=== PATIENT | male | born 1960 | race Caucasian/White ===

== ENCOUNTER 2020-09-10 18:50 | Emergency (ER) | payer OTHER ==
[~2020-09-10] VITALS: Ht 160 cm; Wt 63.5 kg
[2020-09-10 18:50] VITALS: BP_SYST 198
[~2020-09-10 18:50] MED LIST: FERR-57 PO; GLIP5TAB13 PO; LOP600 PO; OMEP20CA15 PO
[2020-09-10] MEDS ORDERED: amLODIPine BESYLATE 10 MG TABLET PO ONE (19:00)
[2020-09-10 19:28] LABS: BASOPHILS # (AUTO) 0.1 K/uL (0.0-0.2); BASOPHILS % (AUTO) 1.9 % (0.0-2.0); EOSINOPHILS # (AUTO) 0.2 K/uL (0.0-0.4); EOSINOPHILS % (AUTO) 2.7 % (0.0-4.0); HEMATOCRIT 34.3 % (36-54); HEMOGLOBIN 11.6 g/dL (14.0-18.0); LYMPHOCYTES # (AUTO) 0.6 K/uL (1.0-5.5); MEAN CORPUSCULAR HEMOGLOBIN 33 pg (27-31); MEAN CORPUSCULAR HGB CONC 34 % (32-36); MEAN CORPUSCULAR VOLUME 98 fL (79.0-98.0); MONOCYTES # (AUTO) 0.2 K/uL (0.0-1.0); MONOCYTES % (AUTO) 4.1 % (1.7-9.3); NEUTROPHILS # (AUTO) 4.5 K/uL (1.8-7.7); NEUTROPHILS % (AUTO) 81.3 % (40.0-70.0); PLATELET COUNT (AUTO) 141 K/uL (130-430); RED BLOOD CELL COUNT(AUTO) 3.51 MIL/uL (4.2-6.2); RED CELL DISTRIBUTION WIDTH 16.2 % (9.0-15.0); WHITE BLOOD COUNT (AUTO) 5.6 K/uL (4.8-10.8)
[2020-09-10 19:40] LABS: ANION GAP 10 (5-15); CHLORIDE 102 mmol/L (98-107); CREATININE 3.41 mg/dL (0.55-1.30); GLUCOSE 107 mg/dL (70-99); SODIUM SERUM 144 mmol/L (136-145); UREA NITROGEN, BLOOD 13 mg/dL (8-21)
[2020-09-10 19:42] LABS: GFR AFRICAN AMERICAN 24 mL/min (>90)
[2020-09-10 19:48] LABS: ALANINE AMINOTRANSFERASE 14 U/L (12-78); ALBUMIN 3.3 g/dL (3.4-4.8); ASPARTATE AMINOTRANSFERASE 11 U/L (10-37); TOTAL BILIRUBIN 0.3 mg/dL (0.0-1.0)
[2020-09-10 19:53] LABS: POTASSIUM 2.9 mmol/L (3.5-5.1)
[2020-09-10 19:54] LABS: ALCOHOL, BLOOD < 3 mg/dL (<10)
[2020-09-10 20:32] VITALS: BP_SYST 194
== END 2020-09-10 20:30 | disposition home or self-care (01) ==
LOC: SED 18:50
DX: E11.649 Type 2 diabetes mellitus with hypoglycemia without coma (principal); I10 Essential (primary) hypertension; R41.82 Altered mental status, unspecified; Z79.899 Other long term (current) drug therapy
CPT/HCPCS: 36415; 70450; 76376; 80053; 84484; 85025; 93005; 99285; G0482

== ENCOUNTER 2021-07-22 12:26 | Emergency (ER) | payer BC, OTHER ==
[~2021-07-22] VITALS: Ht 160 cm; Wt 59.0 kg
[2021-07-22 12:26] VITALS: BP_SYST 117
--- NOTE | 2021-07-22 12:36 | NUR ---
Patient to ER bed 02 to gown for evaluation. Side rails up.
--- NOTE | 2021-07-22 12:38 | NUR ---
Pt brought by ambulance, A&Ox4, pt presents to ER with AV shunt bleeding during dialysis, no bleeding noted at this time, VSS, respirations even and unlabored, cap refill <3.
--- NOTE | 2021-07-22 13:00 | NUR ---
mD Slater AT BEDSIDE FOR EVALUATION.
[2021-07-22 14:46] LABS: BASOPHILS # (AUTO) 0.1 K/uL (0.0-0.2); BASOPHILS % (AUTO) 1.2 % (0.0-2.0); EOSINOPHILS # (AUTO) 0.5 K/uL (0.0-0.4); EOSINOPHILS % (AUTO) 6.2 % (0.0-4.0); HEMATOCRIT 27.6 % (36-54); HEMOGLOBIN 9.5 g/dL (14.0-18.0); MEAN CORPUSCULAR HEMOGLOBIN 37 pg (27-31); MEAN CORPUSCULAR HGB CONC 35 % (32-36); MEAN CORPUSCULAR VOLUME 107 fL (79.0-98.0); MONOCYTES # (AUTO) 0.7 K/uL (0.0-1.0); MONOCYTES % (AUTO) 9.4 % (1.7-9.3); NEUTROPHILS # (AUTO) 5.2 K/uL (1.8-7.7); NEUTROPHILS % (AUTO) 70.2 % (40.0-70.0); PLATELET COUNT (AUTO) 171 K/uL (130-430); RED BLOOD CELL COUNT(AUTO) 2.57 MIL/uL (4.2-6.2); RED CELL DISTRIBUTION WIDTH 13.7 % (9.0-15.0); WHITE BLOOD COUNT (AUTO) 7.4 K/uL (4.8-10.8)
[2021-07-22 15:02] LABS: CALCIUM 7.9 mg/dL (8.4-11.0); POTASSIUM 4.7 mmol/L (3.5-5.1)
[2021-07-22 15:09] LABS: CREATININE 7.84 mg/dL (0.55-1.30)
[2021-07-22 15:40] VITALS: BP_SYST 139
--- NOTE | 2021-07-22 15:40 | NUR ---
Patient given written and verbal discharge instructions and verbalizes understanding. DR.RHEE CLIFF MENDIOLA discussed with patient the results and treatment provided. Patient in stable condition. ID arm band removed. Patient educated on pain management and to follow up with PMD. Pain Scale 0/10 Opportunity for questions provided and answered. Medication side effect fact sheet provided.
== END 2021-07-22 15:40 | disposition home or self-care (01) ==
LOC: SED 12:26
DX: T82.838A Hemorrhage due to vascular prosthetic devices, implants and grafts, initial encounter (principal); I10 Essential (primary) hypertension; E11.9 Type 2 diabetes mellitus without complications; Z79.899 Other long term (current) drug therapy
CPT/HCPCS: 36415; 80048; 85025; 99283

== ENCOUNTER 2022-02-25 10:15 | Inpatient (IN) | payer BC ==
[~2022-02-25] VITALS: Ht 157.5 cm; Wt 57.6 kg
[2022-02-25 10:15] VITALS: BP_SYST 156
[2022-02-25] MEDS ORDERED: CLOP75TA32 PO (10:31)
[2022-02-25] MEDS ORDERED: FOLI-43 PO (10:31)
[2022-02-25] MEDS ORDERED: VALS80TA2 PO (10:31)
[2022-02-25] MEDS ORDERED: HYDR-4039 PO (10:31)
[2022-02-25] MEDS ORDERED: FURO80TA86 PO (10:31)
[2022-02-25] MEDS ORDERED: LEVO175T2 PO (10:31)
[2022-02-25] MEDS ORDERED: PROXL60 PO (10:31)
[2022-02-25] MEDS ORDERED: ATOR20TA64 PO (10:31)
[2022-02-25] MEDS ORDERED: REN800 PO (10:31)
[2022-02-25] MEDS ORDERED: VITD400 PO (10:31)
[2022-02-25] MEDS ORDERED: CALC667T6 PO (10:31)
[2022-02-25] MEDS ORDERED: LEVE500T9 PO (10:31)
[2022-02-25] MEDS ORDERED: ASPI-1393 PO (10:31)
[2022-02-25] MEDS ORDERED: MECO10005 (10:31)
[2022-02-25] MEDS ORDERED: ONDANSETRON HCL 4 MG/2 ML VIAL IVP ONE ×2 (10:45→12:30)
[2022-02-25] MEDS ORDERED: PANTOPRAZOLE SODIUM 40 MG/VIAL (PROTONIX) IVP ONE (10:45)
[2022-02-25 11:18] LABS: BASOPHILS % (AUTO) 0.4 % (0.0-2.0); EOSINOPHILS % (AUTO) 0.1 % (0.0-4.0); HEMATOCRIT 26.3 % (36-54); LYMPHOCYTES # (AUTO) 0.5 K/uL (1.0-5.5); LYMPHOCYTES % (AUTO) 3.8 % (20.5-51.5); MEAN CORPUSCULAR HEMOGLOBIN 35 pg (27-31); MEAN CORPUSCULAR HGB CONC 34 % (32-36); MEAN CORPUSCULAR VOLUME 101 fL (79.0-98.0); MONOCYTES # (AUTO) 0.6 K/uL (0.0-1.0); MONOCYTES % (AUTO) 4.9 % (1.7-9.3); NEUTROPHILS # (AUTO) 10.9 K/uL (1.8-7.7); NEUTROPHILS % (AUTO) 90.8 % (40.0-70.0); PLATELET COUNT (AUTO) 164 K/uL (130-430); RED BLOOD CELL COUNT(AUTO) 2.59 MIL/uL (4.2-6.2); RED CELL DISTRIBUTION WIDTH 16.2 % (9.0-15.0)
[2022-02-25 11:29] LABS: CALCIUM 9.3 mg/dL (8.4-11.0); CREATININE 4.7 mg/dL (0.55-1.30)
[2022-02-25 11:32] LABS: INR 1.1 (0.80-1.20); PROTHROMBIN TIME 11.1 SECS (9.5-12.5)
[2022-02-25 11:40] LABS: TOTAL BILIRUBIN 0.4 mg/dL (0.0-1.0)
[2022-02-25] MEDS ORDERED: METOCLOPRAMIDE HCL 10 MG/2 ML VIAL IVP ONE (13:15)
[2022-02-25] MEDS ORDERED: cefTRIAXone 1 GM IVPB PREMIX 50 ML IV ONE (15:15)
[2022-02-25] MEDS ORDERED: DIPHENHYDRAMINE INJ 50 MG/ML VIAL IVP ONE (15:45)
[2022-02-25] MEDS ORDERED: HALOPERIDOL LACTATE 5 MG/ML VIAL IVP ONE (15:45)
[2022-02-25] MEDS ORDERED: LABETALOL 100 MG/ 20ML VIAL IVP ONE (17:15)
[2022-02-25 22:45] VITALS: BP_SYST 161
[2022-02-25 23:00] VITALS: BP_SYST 170
[2022-02-25 23:14] VITALS: BP_SYST 170
[2022-02-25 23:40] VITALS: BP_SYST 170
[2022-02-26] VITALS (27 sets, daily range): BP systolic 94–209
[2022-02-26] MEDS ORDERED: ACETAMINOPHEN 325 MG TABLET ONE (01:57)
[2022-02-26] MEDS: ACETAMINOPHEN 325 MG TABLET PO PRN ×2 (02:48→16:51)
[2022-02-26] MEDS ORDERED: HEPARIN SODIUM,PORCINE 5,000 UNITS/ML VIAL ONE (04:15)
[2022-02-26] MEDS ORDERED: PIPERACILLIN/TAZOBACTAM 2.25 GM VIAL IV ONE (04:37)
[2022-02-26] MEDS ORDERED: HEPARIN SODIUM,PORCINE 5,000 UNITS/ML VIAL IVP ONE (05:15)
[2022-02-26] MEDS ORDERED: VANCOMYCIN HCL 1 GM/NS PREMIX 250 ML IV ONE ×2 (05:45→08:00)
[2022-02-26] MEDS: PIPERACILLIN/TAZO 2.25G/DEX-IS 50 ML IV SCH ×3 (06:55→18:41)
[2022-02-26 08:25] LABS: BASOPHILS % (AUTO) 0.5 % (0.0-2.0); HEMATOCRIT 24.8 % (36-54); HEMOGLOBIN 8.7 g/dL (14.0-18.0); LYMPHOCYTES # (AUTO) 0.6 K/uL (1.0-5.5); LYMPHOCYTES % (AUTO) 8.3 % (20.5-51.5); MEAN CORPUSCULAR HEMOGLOBIN 35 pg (27-31); MEAN CORPUSCULAR HGB CONC 35 % (32-36); MEAN CORPUSCULAR VOLUME 101 fL (79.0-98.0); MONOCYTES # (AUTO) 0.3 K/uL (0.0-1.0); MONOCYTES % (AUTO) 4.1 % (1.7-9.3); NEUTROPHILS # (AUTO) 6.3 K/uL (1.8-7.7); NEUTROPHILS % (AUTO) 87.1 % (40.0-70.0); PLATELET COUNT (AUTO) 139 K/uL (130-430); RED BLOOD CELL COUNT(AUTO) 2.46 MIL/uL (4.2-6.2); RED CELL DISTRIBUTION WIDTH 16.1 % (9.0-15.0)
[2022-02-26 08:30] LABS: WHITE BLOOD COUNT (AUTO) 7.3 K/uL (4.8-10.8)
[2022-02-26 08:44] LABS: ALBUMIN 2.8 g/dL (3.4-4.8); CALCIUM 8.6 mg/dL (8.4-11.0); CREATININE 3.55 mg/dL (0.55-1.30); PHOSPHORUS 2.3 mg/dL (2.7-4.5); TOTAL BILIRUBIN 0.8 mg/dL (0.0-1.0)
[2022-02-26] MEDS ORDERED: ETOMIDATE 20 MG/ 10 ML VIAL (AMIDATE) ONE (11:00)
[2022-02-26] MEDS ORDERED: ROCURONIUM BROMIDE 10 MG/ML (ZEMURON) ONE (11:00)
[2022-02-26] MEDS ORDERED: PROPOFOL DRIP 100 ML IV ONE (11:24)
[2022-02-26] MEDS ORDERED: SODIUM BICARBONATE 8.4% JECT 50 MEQ/50 ML SYRINGE IVP ONE (12:00)
[2022-02-26] MEDS: PROPOFOL DRIP 100 ML IV PRN ×3 (12:26→21:14)
[2022-02-26] MEDS ORDERED: SODIUM BICARBONATE 8.4% JECT 50 MEQ in 0.45% NACL 1,000 ML IVP SCH (14:00)
[2022-02-26 14:06] LABS: BILIRUBIN,URINE NEGATIVE (NEGATIVE); BLOOD, URINE 1+ (NEGATIVE); CLARITY/URINE CLEAR (CLEAR); COLOR,URINE YELLOW (YELLOW); GLUCOSE,URINE 1+ (NEGATIVE); KETONES,URINE 1+ (NEGATIVE); LEUKOCYTE ESTERASE ,URINE NEGATIVE (NEGATIVE); NITRITE, URINE NEGATIVE (NEGATIVE); PH,URINE 8.5 (5.0-8.0); PROTEIN URINE 3+ (NEGATIVE); UROBILINOGEN,URINE 0.2 (0.2-1.0)
[2022-02-26 14:32] LABS: BACTERIA,URINE FEW /HPF (None Seen); MUCUS,URINE None Seen /LPF (None Seen); RBC,URINE NONE SEEN /HPF (0-3); WBC,URINE NONE SEEN /HPF (0-3)
[2022-02-27] VITALS (33 sets, daily range): BP systolic 103–168
[2022-02-27] MEDS: ACETAMINOPHEN 325 MG TABLET PO PRN (02:24)
[2022-02-27] MEDS: PIPERACILLIN/TAZO 2.25G/DEX-IS 50 ML IV SCH ×2 (06:53)
[2022-02-27 07:47] LABS: ALBUMIN 2.2 g/dL (3.4-4.8); CALCIUM 8.7 mg/dL (8.4-11.0); CREATININE 5.21 mg/dL (0.55-1.30); THYROID STIMULATING HORMONE 2.31 uIu/mL (0.34-4.82); TOTAL BILIRUBIN 0.7 mg/dL (0.0-1.0)
[2022-02-27 09:17] LABS: BASOPHILS % (AUTO) 0.8 % (0.0-2.0); EOSINOPHILS % (AUTO) 0.6 % (0.0-4.0); HEMOGLOBIN 7.3 g/dL (14.0-18.0); LYMPHOCYTES # (AUTO) 0.7 K/uL (1.0-5.5); LYMPHOCYTES % (AUTO) 12.5 % (20.5-51.5); MEAN CORPUSCULAR HEMOGLOBIN 35 pg (27-31); MEAN CORPUSCULAR HGB CONC 34 % (32-36); MEAN CORPUSCULAR VOLUME 103 fL (79.0-98.0); MONOCYTES # (AUTO) 0.3 K/uL (0.0-1.0); MONOCYTES % (AUTO) 4.7 % (1.7-9.3); NEUTROPHILS # (AUTO) 4.5 K/uL (1.8-7.7); NEUTROPHILS % (AUTO) 81.4 % (40.0-70.0); PLATELET COUNT (AUTO) 107 K/uL (130-430); RED BLOOD CELL COUNT(AUTO) 2.09 MIL/uL (4.2-6.2); RED CELL DISTRIBUTION WIDTH 17.1 % (9.0-15.0); WHITE BLOOD COUNT (AUTO) 5.5 K/uL (4.8-10.8)
[2022-02-27 09:49] LABS: HEMATOCRIT 21.5 % (36-54)
[2022-02-27] MEDS ORDERED: HEPARIN SODIUM, PORCINE 10,000 UNITS/ 10 ML VIAL MC ONE (10:15)
[2022-02-27] MEDS ORDERED: HEPARIN SODIUM,PORCINE 5,000 UNITS/ML VIAL MC ONE (11:15)
[2022-02-27] MEDS: PROPOFOL DRIP 100 ML IV PRN (13:24)
[2022-02-27] MEDS: MEROPENEM 500 MG in NS 50 ML IV SCH (21:00)
[2022-02-28] VITALS (30 sets, daily range): BP systolic 93–188
[2022-02-28] MEDS: PROPOFOL DRIP 100 ML IV PRN ×2 (00:56→07:31)
[2022-02-28 07:07] LABS: BASOPHILS # (AUTO) 0.1 K/uL (0.0-0.2); BASOPHILS % (AUTO) 0.8 % (0.0-2.0); EOSINOPHILS # (AUTO) 0.3 K/uL (0.0-0.4); EOSINOPHILS % (AUTO) 4.4 % (0.0-4.0); HEMATOCRIT 25.5 % (36-54); HEMOGLOBIN 8.8 g/dL (14.0-18.0); LYMPHOCYTES # (AUTO) 0.7 K/uL (1.0-5.5); LYMPHOCYTES % (AUTO) 11.1 % (20.5-51.5); MEAN CORPUSCULAR HEMOGLOBIN 35 pg (27-31); MEAN CORPUSCULAR HGB CONC 34 % (32-36); MEAN CORPUSCULAR VOLUME 102 fL (79.0-98.0); MONOCYTES # (AUTO) 0.3 K/uL (0.0-1.0); MONOCYTES % (AUTO) 4.3 % (1.7-9.3); NEUTROPHILS # (AUTO) 5.1 K/uL (1.8-7.7); NEUTROPHILS % (AUTO) 79.4 % (40.0-70.0); PLATELET COUNT (AUTO) 139 K/uL (130-430); RED CELL DISTRIBUTION WIDTH 16.3 % (9.0-15.0); WHITE BLOOD COUNT (AUTO) 6.5 K/uL (4.8-10.8)
[2022-02-28 07:21] LABS: CALCIUM 9.3 mg/dL (8.4-11.0); CREATININE 6.91 mg/dL (0.55-1.30)
[2022-02-28 07:38] LABS: ALBUMIN 2.3 g/dL (3.4-4.8); TOTAL BILIRUBIN 0.8 mg/dL (0.0-1.0)
[2022-02-28] MEDS: MEROPENEM 500 MG in NS 50 ML IV SCH ×2 (08:50→20:13)
[2022-02-28] MEDS ORDERED: IPRATROPIUM/ALBUTEROL SULFATE 3 ML AMPUL.NEB (DUONEB) INH ONE (12:30)
[2022-02-28] MEDS: IPRATROPIUM/ALBUTEROL SULFATE 3 ML AMPUL.NEB (DUONEB) INH SCH (20:05)
[2022-02-28] MEDS: hydrALAZINE HCL 20 MG/ML VIAL IVP PRN (23:30)
[2022-03-01] VITALS (22 sets, daily range): BP systolic 112–158
[2022-03-01] MEDS: IPRATROPIUM/ALBUTEROL SULFATE 3 ML AMPUL.NEB (DUONEB) INH SCH ×4 (01:00→19:55)
[2022-03-01 06:49] LABS: BASOPHILS # (AUTO) 0.1 K/uL (0.0-0.2); BASOPHILS % (AUTO) 0.9 % (0.0-2.0); EOSINOPHILS # (AUTO) 0.4 K/uL (0.0-0.4); EOSINOPHILS % (AUTO) 6.1 % (0.0-4.0); HEMOGLOBIN 9.8 g/dL (14.0-18.0); LYMPHOCYTES # (AUTO) 0.5 K/uL (1.0-5.5); LYMPHOCYTES % (AUTO) 8.1 % (20.5-51.5); MEAN CORPUSCULAR HEMOGLOBIN 34 pg (27-31); MEAN CORPUSCULAR HGB CONC 34 % (32-36); MEAN CORPUSCULAR VOLUME 102 fL (79.0-98.0); MONOCYTES # (AUTO) 0.4 K/uL (0.0-1.0); NEUTROPHILS # (AUTO) 4.9 K/uL (1.8-7.7); NEUTROPHILS % (AUTO) 77.9 % (40.0-70.0); PLATELET COUNT (AUTO) 180 K/uL (130-430); RED BLOOD CELL COUNT(AUTO) 2.86 MIL/uL (4.2-6.2); RED CELL DISTRIBUTION WIDTH 16.3 % (9.0-15.0); WHITE BLOOD COUNT (AUTO) 6.2 K/uL (4.8-10.8)
[2022-03-01 08:00] LABS: ALBUMIN 2.3 g/dL (3.4-4.8); CALCIUM 9.2 mg/dL (8.4-11.0); TOTAL BILIRUBIN 0.6 mg/dL (0.0-1.0)
[2022-03-01] MEDS: MEROPENEM 500 MG in NS 50 ML IV SCH ×2 (08:39→20:42)
[2022-03-01 09:21] LABS: CREATININE 8.25 mg/dL (0.55-1.30)
[2022-03-01] MEDS ORDERED: VANCOMYCIN HCL 1,000 MG in NS 250 ML IV SCH (10:00)
[2022-03-01] MEDS ORDERED: HEPARIN SODIUM,PORCINE 5,000 UNITS/ML VIAL MC ONE (10:45)
[2022-03-02] VITALS (24 sets, daily range): BP systolic 94–161
[2022-03-02] MEDS: IPRATROPIUM/ALBUTEROL SULFATE 3 ML AMPUL.NEB (DUONEB) INH SCH ×5 (01:35→23:32)
[2022-03-02 06:39] LABS: BASOPHILS % (AUTO) 0.7 % (0.0-2.0); EOSINOPHILS # (AUTO) 0.2 K/uL (0.0-0.4); EOSINOPHILS % (AUTO) 2.9 % (0.0-4.0); HEMOGLOBIN 9.7 g/dL (14.0-18.0); LYMPHOCYTES # (AUTO) 0.5 K/uL (1.0-5.5); LYMPHOCYTES % (AUTO) 9.8 % (20.5-51.5); MEAN CORPUSCULAR HEMOGLOBIN 35 pg (27-31); MEAN CORPUSCULAR HGB CONC 35 % (32-36); MEAN CORPUSCULAR VOLUME 101 fL (79.0-98.0); MONOCYTES # (AUTO) 0.5 K/uL (0.0-1.0); MONOCYTES % (AUTO) 9.6 % (1.7-9.3); NEUTROPHILS # (AUTO) 4.3 K/uL (1.8-7.7); PLATELET COUNT (AUTO) 152 K/uL (130-430); RED BLOOD CELL COUNT(AUTO) 2.77 MIL/uL (4.2-6.2); RED CELL DISTRIBUTION WIDTH 15.6 % (9.0-15.0); WHITE BLOOD COUNT (AUTO) 5.6 K/uL (4.8-10.8)
[2022-03-02 07:08] LABS: ALBUMIN 2.3 g/dL (3.4-4.8); CALCIUM 9.5 mg/dL (8.4-11.0); CREATININE 6.2 mg/dL (0.55-1.30); TOTAL BILIRUBIN 0.5 mg/dL (0.0-1.0)
[2022-03-02] MEDS: MEROPENEM 500 MG in NS 50 ML IV SCH (08:03)
[2022-03-02] MEDS: ACETAMINOPHEN 325 MG TABLET PO PRN (08:15)
[2022-03-02] MEDS: hydrALAZINE HCL 20 MG/ML VIAL IVP PRN (17:06)
[2022-03-02] MEDS ORDERED: NOREPINEPHRINE BITARTRATE 8 MG in NS 242 ML IV PRN (21:30)
[2022-03-02] MEDS ORDERED: ALBUMIN HUMAN 25% 100 ML IV ONE (21:30)
[2022-03-03] VITALS (19 sets, daily range): BP systolic 101–171
[2022-03-03 06:50] LABS: BASOPHILS # (AUTO) 0.1 K/uL (0.0-0.2); BASOPHILS % (AUTO) 0.9 % (0.0-2.0); EOSINOPHILS # (AUTO) 0.3 K/uL (0.0-0.4); EOSINOPHILS % (AUTO) 5.3 % (0.0-4.0); HEMOGLOBIN 8.9 g/dL (14.0-18.0); LYMPHOCYTES # (AUTO) 0.6 K/uL (1.0-5.5); LYMPHOCYTES % (AUTO) 10.5 % (20.5-51.5); MEAN CORPUSCULAR HEMOGLOBIN 35 pg (27-31); MEAN CORPUSCULAR HGB CONC 34 % (32-36); MEAN CORPUSCULAR VOLUME 102 fL (79.0-98.0); MONOCYTES # (AUTO) 0.5 K/uL (0.0-1.0); MONOCYTES % (AUTO) 8.7 % (1.7-9.3); NEUTROPHILS # (AUTO) 4.3 K/uL (1.8-7.7); NEUTROPHILS % (AUTO) 74.6 % (40.0-70.0); PLATELET COUNT (AUTO) 154 K/uL (130-430); RED BLOOD CELL COUNT(AUTO) 2.55 MIL/uL (4.2-6.2); RED CELL DISTRIBUTION WIDTH 16.1 % (9.0-15.0); WHITE BLOOD COUNT (AUTO) 5.8 K/uL (4.8-10.8)
[2022-03-03 07:07] LABS: ALBUMIN 2.2 g/dL (3.4-4.8); CALCIUM 9.5 mg/dL (8.4-11.0); TOTAL BILIRUBIN 0.5 mg/dL (0.0-1.0)
[2022-03-03] MEDS: IPRATROPIUM/ALBUTEROL SULFATE 3 ML AMPUL.NEB (DUONEB) INH SCH ×3 (07:27→20:10)
[2022-03-03 08:43] LABS: CREATININE 7.84 mg/dL (0.55-1.30)
[2022-03-03] MEDS ORDERED: HEPARIN SODIUM,PORCINE 5,000 UNITS/ML VIAL MC ONE (10:45)
[2022-03-03] MEDS: metroNIDAZOLE 250 mg/NS 50 ML IV SCH ×2 (14:04→22:05)
[2022-03-04] MEDS: IPRATROPIUM/ALBUTEROL SULFATE 3 ML AMPUL.NEB (DUONEB) INH SCH ×4 (00:28→20:31)
[2022-03-04 00:36] VITALS: BP_SYST 130
[2022-03-04] MEDS: metroNIDAZOLE 250 mg/NS 50 ML IV SCH ×3 (05:53→21:14)
[2022-03-04 08:00] VITALS: BP_SYST 117
[2022-03-04 13:12] VITALS: BP_SYST 155
[2022-03-04] MEDS ORDERED: BALSAM PERU/CASTOR OIL 56.7 GM OINT...G. TP ONE (17:00)
[2022-03-04 17:24] VITALS: BP_SYST 153
[2022-03-04 20:00] VITALS: BP_SYST 155
[2022-03-05 00:11] VITALS: BP_SYST 159
[2022-03-05] MEDS: metroNIDAZOLE 250 mg/NS 50 ML IV SCH ×2 (05:49→13:55)
[2022-03-05 08:00] VITALS: BP_SYST 147
[2022-03-05] MEDS: IPRATROPIUM/ALBUTEROL SULFATE 3 ML AMPUL.NEB (DUONEB) INH SCH ×4 (08:27→19:56)
[2022-03-05] MEDS: BALSAM PERU/CASTOR OIL 56.7 GM OINT...G. TP SCH (09:48)
[2022-03-05] MEDS ORDERED: HEPARIN SODIUM,PORCINE 5,000 UNITS/ML VIAL IV PRN (10:45)
[2022-03-05 12:45] VITALS: BP_SYST 122
[2022-03-05 16:45] VITALS: BP_SYST 135
[2022-03-05 20:00] VITALS: BP_SYST 123
[2022-03-06] MEDS: metroNIDAZOLE 250 mg/NS 50 ML IV SCH ×4 (00:13→21:22)
[2022-03-06 00:38] VITALS: BP_SYST 156
[2022-03-06] MEDS: IPRATROPIUM/ALBUTEROL SULFATE 3 ML AMPUL.NEB (DUONEB) INH SCH ×4 (01:49→20:08)
[2022-03-06 08:07] VITALS: BP_SYST 156
[2022-03-06 08:14] LABS: ALBUMIN 2.6 g/dL (3.4-4.8); BASOPHILS # (AUTO) 0.1 K/uL (0.0-0.2); BASOPHILS % (AUTO) 1.4 % (0.0-2.0); CALCIUM 8.5 mg/dL (8.4-11.0); CREATININE 5.88 mg/dL (0.55-1.30); EOSINOPHILS # (AUTO) 0.3 K/uL (0.0-0.4); EOSINOPHILS % (AUTO) 6.5 % (0.0-4.0); HEMATOCRIT 28.5 % (36-54); LYMPHOCYTES # (AUTO) 0.7 K/uL (1.0-5.5); LYMPHOCYTES % (AUTO) 16.4 % (20.5-51.5); MEAN CORPUSCULAR HEMOGLOBIN 36 pg (27-31); MEAN CORPUSCULAR HGB CONC 35 % (32-36); MEAN CORPUSCULAR VOLUME 102 fL (79.0-98.0); MONOCYTES # (AUTO) 0.5 K/uL (0.0-1.0); MONOCYTES % (AUTO) 10.5 % (1.7-9.3); NEUTROPHILS # (AUTO) 2.9 K/uL (1.8-7.7); NEUTROPHILS % (AUTO) 65.2 % (40.0-70.0); PLATELET COUNT (AUTO) 193 K/uL (130-430); RED BLOOD CELL COUNT(AUTO) 2.81 MIL/uL (4.2-6.2); RED CELL DISTRIBUTION WIDTH 15.9 % (9.0-15.0); TOTAL BILIRUBIN 0.4 mg/dL (0.0-1.0); WHITE BLOOD COUNT (AUTO) 4.4 K/uL (4.8-10.8)
[2022-03-06] MEDS: BALSAM PERU/CASTOR OIL 56.7 GM OINT...G. TP SCH (10:36)
[2022-03-06 11:51] VITALS: BP_SYST 153
[2022-03-06 15:51] VITALS: BP_SYST 141
[2022-03-06 20:00] VITALS: BP_SYST 152
[2022-03-07] VITALS: BP_SYST 158
[2022-03-07] MEDS: IPRATROPIUM/ALBUTEROL SULFATE 3 ML AMPUL.NEB (DUONEB) INH SCH ×4 (01:34→20:35)
[2022-03-07] MEDS: metroNIDAZOLE 250 mg/NS 50 ML IV SCH ×3 (05:57→21:26)
[2022-03-07 08:05] VITALS: BP_SYST 138
[2022-03-07] MEDS: BALSAM PERU/CASTOR OIL 56.7 GM OINT...G. TP SCH (10:14)
[2022-03-07 11:20] VITALS: BP_SYST 146
[2022-03-07 15:40] VITALS: BP_SYST 172
[2022-03-07 20:00] VITALS: BP_SYST 145
[2022-03-08] VITALS: BP_SYST 153
[2022-03-08] MEDS: IPRATROPIUM/ALBUTEROL SULFATE 3 ML AMPUL.NEB (DUONEB) INH SCH ×5 (01:22→23:19)
[2022-03-08 08:21] VITALS: BP_SYST 138
[2022-03-08] MEDS ORDERED: HEPARIN SODIUM,PORCINE 5,000 UNITS/ML VIAL MC PRN (09:42)
[2022-03-08] MEDS: BALSAM PERU/CASTOR OIL 56.7 GM OINT...G. TP SCH (10:25)
[2022-03-08 12:35] VITALS: BP_SYST 182
[2022-03-08 16:35] VITALS: BP_SYST 158
[2022-03-09 00:16] VITALS: BP_SYST 151
[2022-03-09 07:17] LABS: EOSINOPHILS # (AUTO) 0.2 K/uL (0.0-0.4); EOSINOPHILS % (AUTO) 2.8 % (0.0-4.0); HEMATOCRIT 26.4 % (36-54); HEMOGLOBIN 9.1 g/dL (14.0-18.0); LYMPHOCYTES # (AUTO) 0.7 K/uL (1.0-5.5); LYMPHOCYTES % (AUTO) 11.4 % (20.5-51.5); MEAN CORPUSCULAR HEMOGLOBIN 35 pg (27-31); MEAN CORPUSCULAR HGB CONC 34 % (32-36); MEAN CORPUSCULAR VOLUME 101 fL (79.0-98.0); MONOCYTES # (AUTO) 0.4 K/uL (0.0-1.0); MONOCYTES % (AUTO) 6.2 % (1.7-9.3); PLATELET COUNT (AUTO) 231 K/uL (130-430); RED BLOOD CELL COUNT(AUTO) 2.61 MIL/uL (4.2-6.2); RED CELL DISTRIBUTION WIDTH 15.6 % (9.0-15.0)
[2022-03-09 07:32] LABS: ALBUMIN 2.5 g/dL (3.4-4.8); CALCIUM 9.1 mg/dL (8.4-11.0); CREATININE 6.21 mg/dL (0.55-1.30); TOTAL BILIRUBIN 0.4 mg/dL (0.0-1.0)
[2022-03-09] MEDS: IPRATROPIUM/ALBUTEROL SULFATE 3 ML AMPUL.NEB (DUONEB) INH SCH ×4 (07:43→23:45)
[2022-03-09 08:00] VITALS: BP_SYST 135
[2022-03-09 08:31] VITALS: BP_SYST 151
[2022-03-09 08:37] LABS: BASOPHILS % (AUTO) 0.3 % (0.0-2.0); NEUTROPHILS % (AUTO) 79.3 % (40.0-70.0)
[2022-03-09 08:38] LABS: NEUTROPHILS # (AUTO) 4.7 K/uL (1.8-7.7)
[2022-03-09] MEDS: ACETAMINOPHEN 325 MG TABLET PO PRN (09:31)
[2022-03-09] MEDS: BALSAM PERU/CASTOR OIL 56.7 GM OINT...G. TP SCH (09:41)
[2022-03-09 11:45] VITALS: BP_SYST 152
[2022-03-09 15:58] VITALS: BP_SYST 161
[2022-03-09 19:40] VITALS: BP_SYST 154
[2022-03-10 00:45] VITALS: BP_SYST 162
[2022-03-10] MEDS: hydrALAZINE HCL 20 MG/ML VIAL IVP PRN (01:02)
[2022-03-10] MEDS: IPRATROPIUM/ALBUTEROL SULFATE 3 ML AMPUL.NEB (DUONEB) INH SCH ×2 (07:18→11:33)
[2022-03-10 08:00] VITALS: BP_SYST 127
[2022-03-10] MEDS: ACETAMINOPHEN 325 MG TABLET PO PRN (09:33)
[2022-03-10] MEDS: BALSAM PERU/CASTOR OIL 56.7 GM OINT...G. TP SCH (09:34)
[2022-03-10 12:55] VITALS: BP_SYST 155
[2022-03-10 16:00] VITALS: BP_SYST 149
[2022-03-10 16:52] VITALS: BP_SYST 149
== END 2022-03-10 19:00 | DRG 871 ==
LOC: SED 10:15 → STU 15:50 → SIC 21:18 → STU 03-03 17:22
PROVIDERS: ADMIT Internal Medicine; ATTEND Internal Medicine
PROC: 5A1945Z Respiratory Ventilation, 24-96 Consecutive Hours (ICD-10-PCS; principal; 2022-02-26)
PROC: 02HV33Z Insertion of Infusion Device into Superior Vena Cava, Percutaneous Approach (ICD-10-PCS; 2022-02-26)
PROC: B548ZZA Ultrasonography of Superior Vena Cava, Guidance (ICD-10-PCS; 2022-02-26)
PROC: 0B9J8ZX Drainage of Left Lower Lung Lobe, Via Natural or Artificial Opening Endoscopic, Diagnostic (ICD-10-PCS; 2022-02-26)
PROC: 0B9D8ZX Drainage of Right Middle Lung Lobe, Via Natural or Artificial Opening Endoscopic, Diagnostic (ICD-10-PCS; 2022-02-26)
PROC: 0B9F8ZX Drainage of Right Lower Lung Lobe, Via Natural or Artificial Opening Endoscopic, Diagnostic (ICD-10-PCS; 2022-02-26)
PROC: 5A1D70Z Performance of Urinary Filtration, Intermittent, Less than 6 Hours Per Day (ICD-10-PCS; 2022-02-26)
PROC: 0BH17EZ Insertion of Endotracheal Airway into Trachea, Via Natural or Artificial Opening (ICD-10-PCS; 2022-02-26)
PROC: 0B9H8ZX Drainage of Lung Lingula, Via Natural or Artificial Opening Endoscopic, Diagnostic (ICD-10-PCS; 2022-02-26)
PROC: 5A1D70Z Performance of Urinary Filtration, Intermittent, Less than 6 Hours Per Day (ICD-10-PCS; 2022-02-27)
PROC: 30233N1 Transfusion of Nonautologous Red Blood Cells into Peripheral Vein, Percutaneous Approach (ICD-10-PCS; 2022-02-28)
PROC: 5A1D70Z Performance of Urinary Filtration, Intermittent, Less than 6 Hours Per Day (ICD-10-PCS; 2022-03-01)
PROC: 5A1D70Z Performance of Urinary Filtration, Intermittent, Less than 6 Hours Per Day (ICD-10-PCS; 2022-03-03)
PROC: 5A1D70Z Performance of Urinary Filtration, Intermittent, Less than 6 Hours Per Day (ICD-10-PCS; 2022-03-05)
PROC: 5A1D70Z Performance of Urinary Filtration, Intermittent, Less than 6 Hours Per Day (ICD-10-PCS; 2022-03-08)
PROC: 5A1D70Z Performance of Urinary Filtration, Intermittent, Less than 6 Hours Per Day (ICD-10-PCS; 2022-03-09)
DX: A41.9 Sepsis, unspecified organism (principal); I21.4 Non-ST elevation (NSTEMI) myocardial infarction; J69.0 Pneumonitis due to inhalation of food and vomit; N18.6 End stage renal disease; J96.01 Acute respiratory failure with hypoxia; I69.354 Hemiplegia and hemiparesis following cerebral infarction affecting left non-dominant side; M31.8 Other specified necrotizing vasculopathies; K92.2 Gastrointestinal hemorrhage, unspecified; I13.2 Hypertensive heart and chronic kidney disease with heart failure and with stage 5 chronic kidney disease, or end stage renal disease; I25.10 Atherosclerotic heart disease of native coronary artery without angina pectoris; G40.909 Epilepsy, unspecified, not intractable, without status epilepticus; E11.40 Type 2 diabetes mellitus with diabetic neuropathy, unspecified; E83.39 Other disorders of phosphorus metabolism; E78.1 Pure hyperglyceridemia; I50.9 Heart failure, unspecified; E11.22 Type 2 diabetes mellitus with diabetic chronic kidney disease; R53.81 Other malaise; Z20.822 Contact with and (suspected) exposure to COVID-19; J40 Bronchitis, not specified as acute or chronic; L89.159 Pressure ulcer of sacral region, unspecified stage; Z87.01 Personal history of pneumonia (recurrent); Z99.2 Dependence on renal dialysis; Z74.01 Bed confinement status; Y92.89 Other specified places as the place of occurrence of the external cause
CPT/HCPCS: 0241U; 36415; 36600; 71045; 76376; 80053; 80061; 81000; 82803-TC; 83605; 83690; 83735; 83880; 84100; 84443; 84484; 85025; 85610-TC; 85651-TC; 85730-TC; 86886; 86900; 86901; 86920; 87040; 87070-TC; 87081; 87205-TC; 90935; 90937; 92610-GN; 93005; 93306; 94002; 94003; 94640; 94760; 97110-GP; 97112-GP; 97530-GP; 99291; C1751; C9113; G0378; J0360; J0696; J1200; J1630; J1644; J1956; J2185; J2405; J2543; J2704; J2765; J3370; J3490; J7030; J7050; J7060; P9021